=== PATIENT | male | born 1945 | race Caucasian/White ===

== ENCOUNTER 2019-04-09 11:32 | Emergency (ER) | payer OTHER ==
[2019-04-09 11:39] VITALS: BP 144/66; PULSE 58; TEMP 97.5; BMI 26.6
--- NOTE | 2019-04-09 11:59 | PDOC ---
History of Present Illness - General Chief Complaint: Injury Stated Complaint: INJURY Time Seen by Provider: 04/09/19 11:53 History Source: Patient Exam Limitations: No Limitations - History of Present Illness Initial Comments: 04/09/19 was playing tennis this afternoon, when he inverted his right foot causing an injury to the midfoot. 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 has sprained this foot on multiple occasions but was concerned about swelling and ecchymoses to the the dorsum of his foot towards his fourth fifth metatarsals. Denies numbness or tingling to toes, no ankle or knee injury. Occurred: reports: this afternoon Severity: reports: mild, moderate Pain Location: reports: lower extremity (Right foot) Method of Injury: Yes: fall Modifying Factors: improves with: None Associated Symptoms (Fall): denies symptoms Past History - Travel Traveled outside of the country in the last 30 days: No Close contact w/someone who was outside of country & ill: No - Past Medical History Allergies/Adverse Reactions: Allergies Allergy/AdvReac Type Severity Reaction Status Date / Time No Known Allergies Allergy Verified 04/09/19 11:39 COPD: No - Psycho Social/Smoking Cessation Hx Smoking History: Never smoked Information on smoking cessation initiated: No Hx Alcohol Use: No Drug/Substance Use Hx: No Review of Systems - Review of Systems Able to Perform ROS?: Yes Is the patient limited Welsh proficient: Yes Constitutional: Yes: See HPI. No: Symptoms Reported, Chills HEENTM: No: Symptoms Reported Musculoskeletal: Yes: Symptoms Reported, See HPI, Joint Pain, Joint Swelling Integumentary: Yes: Symptoms Reported, See HPI, Bruising All Other Systems: Reviewed and Negative *Physical Exam - Vital Signs Last Vital Signs Temp Pulse Resp BP Pulse Ox 97.5 F L 58 L 19 144/66 98 04/09/19 11:37 04/09/19 11:37 04/09/19 11:37 04/09/19 11:37 04/09/19 11:37 - Physical Exam General Appearance: Yes: Nourished, Appropriately Dressed, Mild Distress HEENT: positive: AL[place], Normal ENT Inspection, TMs Normal, Pharynx Normal Neck: negative: Tender, Supple Respiratory/Chest: positive: Lungs Clear Cardiovascular: positive: Regular Rate Extremity: positive: Normal Capillary Refill, Normal Range of Motion, Swelling ( with ecchymosis to lateral aspect of midfoot= ~ 3,4,5 metatarsals ). 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 will provide blane wrap/cast shoe and crutches with walking instructions. / refer to Ortho 04/09/19 15:53 Discharge - Discharge Information Problems reviewed: No Clinical Impression/Diagnosis: Foot fracture, right Qualifiers: Encounter type: initial encounter Fracture type: closed Qualified Code(s): S92.901A - Unspecified fracture of right foot, initial encounter for closed fracture Condition: Stable Disposition: HOME - Admission No - Follow up/Referral Referrals: Marty Rogers DO [Staff Physician] - - Patient Discharge Instructions Patient Printed Discharge Instructions: DI for Foot Fracture Additional Instructions: Rest, elevate, use ice packs on and off for swelling and bruising, and Blane wrap for compression and cast shoe No weightbearing but may use toe-touch for balance while using crutches Avoid excessive walking or strenuous activity until cleared May use Tylenol or Motrin for swelling and pain relief Follow-up with orthopedist for in 1 to 2 days for reevaluation and possible casting Return to emergency department for worsened pain, swelling or immobility. - Post Discharge Activity
== END 2019-04-09 12:40 | disposition home or self-care (01) ==
LOC: JERFT 11:32
PROC: 2W3SXYZ Immobilization of Right Foot using Other Device (ICD-10-PCS; principal; 2019-04-09)
DX: S92.351A Displaced fracture of fifth metatarsal bone, right foot, initial encounter for closed fracture (principal); W18.39XA Other fall on same level, initial encounter; Y93.73 Activity, racquet and hand sports; Y92.312 Tennis court as the place of occurrence of the external cause; Y99.8 Other external cause status
CPT/HCPCS: 29540; 73630-TC-RT-FY; 99283-25

== ENCOUNTER 2022-07-19 04:02 | Day surgery (SDC) | payer OTHER ==
[2022-07-15 13:59] VITALS: BMI 25.8
[2022-07-19] MEDS ORDERED: BUPIVACAINE HCL/PF 0.25% (2.5MG/ML) 10 ML VIAL ONE (10:43)
[2022-07-19] MEDS ORDERED: BUPIVACAINE HCL/PF 0.5% (5MG/ML) 10 ML VIAL ONE (10:43)
[2022-07-19] MEDS ORDERED: TRIAMCINOLONE ACET 40MG/1ML VIAL ONE (10:43)
[2022-07-19] MEDS ORDERED: LIDOCAINE HCL 1% PRESERVATIVE FREE - 30ML VIAL IJ ONE (10:57)
[2022-07-19] MEDS ORDERED: IOHEXOL 180 MG/1 ML ML IJ ONE (10:57)
[2022-07-19] MEDS ORDERED: LIDOCAINE HCL 1%, 10 MG/ML (20ML VIAL) NR ONE (10:57)
[2022-07-19] MEDS ORDERED: BUPIVACAINE HCL/PF 0.5% (5MG/ML) 10 ML VIAL IJ ONE (10:58)
[2022-07-19] MEDS ORDERED: TRIAMCINOLONE ACET 40MG/1ML VIAL IM ONE (10:59)
[2022-07-19 11:20] VITALS: PULSE 58; RESP 18; TEMP 97.8
[2022-07-19 12:01] VITALS: BP 151/78
[2022-07-19] MEDS ORDERED: ACETAMINOPHEN 500 MG TABLET (FP) PO PRN (12:44)
== END 2022-07-19 11:25 | disposition home or self-care (01) ==
LOC: JASU-SURG 04:02
PROVIDERS: ATTEND Pain Medicine Pain Medicine
PROC: 3E0U3BZ Introduction of Anesthetic Agent into Joints, Percutaneous Approach (ICD-10-PCS; 2022-07-19)
PROC: 3E0U33Z Introduction of Anti-inflammatory into Joints, Percutaneous Approach (ICD-10-PCS; principal; 2022-07-19 11:45)
DX: M16.11 Unilateral primary osteoarthritis, right hip (principal)
CPT/HCPCS: 76000-TC-FY